=== PATIENT | male | born 2000 | race Hispanic/Latino ===

== ENCOUNTER 2021-02-18 06:40 | Emergency (ER) | payer OTHER ==
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
[2021-02-18] MEDS ORDERED: oxyCODONE /ACETAMINOPHEN 5-325MG TAB PO ONE (10:12)
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
[2021-02-18 11:37] VITALS: BP 122/56
== END 2021-02-18 11:19 | disposition home or self-care (01) ==
LOC: ED 06:40
DX: S52.502A Unspecified fracture of the lower end of left radius, initial encounter for closed fracture (principal); Z79.899 Other long term (current) drug therapy; W22.8XXA Striking against or struck by other objects, initial encounter; Y93.89 Activity, other specified; Y92.89 Other specified places as the place of occurrence of the external cause; Y99.8 Other external cause status